=== PATIENT | female | born 1990 | race Caucasian/White ===

== ENCOUNTER 2018-05-09 14:09 | Emergency (ER) | payer BC ==
[2018-05-09 14:28] VITALS: BP 131/103
[2018-05-09] MEDS ORDERED: Sodium Chloride 0.9% 1,000 ML IV ONE (14:28)
--- NOTE | 2018-05-09 14:36 | EDM.PDOC ---
ED HPI GENERAL MEDICAL PROBLEM - General Chief Complaint: Chest Pain Stated Complaint: CHEST PAIN Time Seen by Provider: 05/09/18 14:17 - History of Present Illness INITIAL COMMENTS - FREE TEXT/NARRATIVE: This is a 28-year-old female accompanied by her significant other presented today to the emergency department for an evaluation of chest pain. She stated that she has history of aortic stenosis, tricuspid stenosis, and mitral prolapse which she has been following up with [facility] split trimmer . She further stated that she has had recent dental cleaning at the dental office approximately 6 days ago where she received prophylactic antibiotic one time dose prior to cleaning. After her dental cleaning she developed left-sided chest pain, which is associated with shortness of breath, neck and back pain. Upon onset of chest pain she rated her discomfort level was 7 or 8 on a scale of 0-10. She described her pain as sharp and heavy sensation to her left side of the chest. She denies any use of medication to alleviate pain prior to arrival today. [facility] today for the similar complaint where she was advised to come to the emergency department for further evaluation. Currently she is complaining of left sided chest pain which she rated about 7 on a scale of 0-10. Pain is associated with shortness of breath, lower back pain, nausea, dizziness. She denies any specific aggravating or alleviating factors continuing to her symptoms. She was asked specifically about contraception use which she denies any use in last 2 years. She further denies any recent traveling, denies any history of smoking, any history of asthma. She denies any other concern at this time. Left Chest Pain Score (Numeric/FACES): 7 - Related Data Allergies Allergy/AdvReac Type Severity Reaction Status Date / Time grass pollen Allergy Cannot Verified 10/28/15 12:52 Remember dust Allergy Cannot Uncoded 10/28/15 12:52 Remember Home Meds: Home Meds Fexofenadine/Pseudoephedrine [Diana-D 24 Hour Tablet] 1 each PO DAILY [History] Levothyroxine Sodium [Synthroid] 88 mcg PO DAILY 10/28/15 [History] Multivitamin [Multi-Day Vitamins] 1 each PO DAILY 10/28/15 [History] Pnv No.122/Iron/Folic Acid [ Multi Tablet] 1 tab PO DAILY 05/09/18 [ History] Past Medical History HEENT History: Reports: Allergic Rhinitis Other HEENT History: diplobia, facial surgery Other Gastrointestinal History: epigastric pain, rectal bleeding, hematochezia Other Neuro History: dizziness Other Psychiatric History: fatigue Endocrine/Metabolic History: Reports: Hypothyroidism - Past Surgical History HEENT Surgical History: Reports: Tonsillectomy Social & Family History - Tobacco Use Smoking Status *Q: Never Smoker ED ROS GENERAL - Review of Systems Review Of Systems: ROS reveals no pertinent complaints other than HPI. ED EXAM, GENERAL - Physical Exam Exam: See Below Exam Limited By: No Limitations General Appearance: Alert, WD/WN, No Apparent Distress Ears: Normal External Exam, Normal Canal, Hearing Grossly Normal, Normal TMs Ear Exam: Bilateral Ear: Auricle Normal, Canal Normal, TM normal Nose: Normal Inspection, Normal Mucosa, No Blood Throat/Mouth: Normal Inspection, Normal Lips, Normal Teeth, Normal Gums, Normal Oropharynx, Normal Voice, No Airway Compromise Head: Atraumatic, Normocephalic Neck: Normal Inspection, Supple, Non-Tender, Full Range of Motion Respiratory/Chest: No Respiratory Distress, Lungs Clear, Normal Breath Sounds, No Accessory Muscle Use, Chest Non-Tender Cardiovascular: Normal Peripheral Pulses, No Edema, Tachycardia, Systolic Murmur GI/Abdominal: Normal Bowel Sounds, Soft, Non-Tender, No Distention, No Abnormal Bruit Back Exam: Normal Inspection, Full Range of Motion, NT Extremities: Normal Inspection, Normal Range of Motion, Non-Tender, Normal Capillary Refill, No Pedal Edema Neurological: Alert, Oriented, Normal Cognition, Normal Gait Psychiatric: Normal Affect, Normal Mood Skin Exam: Warm, Dry, Intact, Normal Color, No Rash Lymphatic: No Adenopathy Course - Vital Signs Last Recorded V/S: Last Vital Signs Temp 37.4 C 05/09/18 14:20 Pulse 98 05/09/18 14:20 Resp 16 05/09/18 14:20 BP 131/103 H 05/09/18 14:20 Pulse Ox 98 05/09/18 14:20 - Orders/Labs/Meds Orders: Active Orders 24 hr Category Date Time Status EKG Documentation Completion [RC] STAT Care 05/09/18 14:27 Active Chest 2V [CR] Stat Exams 05/09/18 14:27 Taken Labs: Laboratory Tests 05/09/18 05/09/18 05/09/18 Range/Units 15:00 15:00 15:00 WBC 9.38 (3.98-10.04) K/mm3 RBC 4.25 (3.98-5.22) M/mm3 Hgb 13.2 (11.2-15.7) gm/L Hct 38.1 (34.1-44.9) % MCV 89.6 (79.4-94.8) fl MCH 31.1 (25.6-32.2) pg MCHC 34.6 (32.2-35.5) g/dl RDW Std Deviation 40.4 (36.4-46.3) fL Plt Count 187 (182-369) K/mm3 MPV 10.7 (9.4-12.3) fl Neut % (Auto) 72.4 H (34.0-71.1) % Lymph % (Auto) 18.9 L (19.3-51.7) % [place] % (Auto) 6.8 (4.7-12.5) % Eos % (Auto) 1.3 (0.7-5.8) Baso % (Auto) 0.6 (0.1-1.2) % Neut # (Auto) 6.79 H (1.56-6.13) K/mm3 Lymph # (Auto) 1.77 (1.18-3.74) K/mm3 [place] # (Auto) 0.64 H (0.24-0.36) K/mm3 Eos # (Auto) 0.12 (0.04-0.36) K/mm3 Baso # (Auto) 0.06 (0.01-0.08) K/mm3 PT 10.9 (9.5-12.1) SECONDS INR 1.00 D-Dimer, Quantitative 0.32 (0.19-0.50) mg/L Sodium 137 (136-145) mEq/L Potassium 3.7 (3.5-5.1) mEq/L Chloride 102 (98-107) mEq/L Carbon Dioxide 26 (21-32) mEq/L Anion Gap 12.7 (5-15) BUN 11 (7-18) mg/dL Creatinine 1.1 H (0.55-1.02) mg/dL Est Cr Clr Drug Dosing 66.34 mL/min Estimated GFR (MDRD) 60 (>60) mL/min BUN/Creatinine Ratio 10.0 L (14-18) Glucose 97 (74-106) mg/dL Calcium 8.9 (8.5-10.1) mg/dL Magnesium 1.9 (1.8-2.4) mg/dl Total Bilirubin 0.7 (0.2-1.0) mg/dL AST 14 L (15-37) U/L ALT 17 (14-59) U/L Alkaline Phosphatase 76 (46-116) U/L CK-MB (CK-2) < 0.5 (0-3.6) ng/ml NT-Pro-B Natriuret Pep (0-125) pg/mL Total Protein 7.9 (6.4-8.2) g/dl Albumin 3.9 (3.4-5.0) g/dl Globulin 4.0 gm/dL Albumin/Globulin Ratio 1.0 (1-2) Urine Color (Yellow) Urine Appearance (Clear) Urine pH (5.0-8.0) Ur Specific [place] (1.005-1.030) Urine Protein (Negative) Urine Glucose (UA) (Negative) Urine Ketones (Negative) Urine Occult Blood (Negative) Urine Nitrite (Negative) Urine Bilirubin (Negative) Urine Urobilinogen (0.2-1.0) Ur Leukocyte Esterase (Negative) Urine RBC (0-5) /hpf Urine WBC (0-5) /hpf Ur Epithelial Cells (0-5) /hpf Urine Bacteria (FEW) /hpf Urine Mucus (FEW) /hpf 05/09/18 05/09/18 Range/Units 15:00 16:00 WBC (3.98-10.04) K/mm3 RBC (3.98-5.22) M/mm3 Hgb (11.2-15.7) gm/L Hct (34.1-44.9) % MCV (79.4-94.8) fl MCH (25.6-32.2) pg MCHC (32.2-35.5) g/dl RDW Std Deviation (36.4-46.3) fL Plt Count (182-369) K/mm3 MPV (9.4-12.3) fl Neut % (Auto) (34.0-71.1) % Lymph % (Auto) (19.3-51.7) % [place] % (Auto) (4.7-12.5) % Eos % (Auto) (0.7-5.8) Baso % (Auto) (0.1-1.2) % Neut # (Auto) (1.56-6.13) K/mm3 Lymph # (Auto) (1.18-3.74) K/mm3 [place] # (Auto) (0.24-0.36) K/mm3 Eos # (Auto) (0.04-0.36) K/mm3 Baso # (Auto) (0.01-0.08) K/mm3 PT (9.5-12.1) SECONDS INR D-Dimer, Quantitative (0.19-0.50) mg/L Sodium (136-145) mEq/L Potassium (3.5-5.1) mEq/L Chloride (98-107) mEq/L Carbon Dioxide (21-32) mEq/L Anion Gap (5-15) BUN (7-18) mg/dL Creatinine (0.55-1.02) mg/dL Est Cr Clr Drug Dosing mL/min Estimated GFR (MDRD) (>60) mL/min BUN/Creatinine Ratio (14-18) Glucose (74-106) mg/dL Calcium (8.5-10.1) mg/dL Magnesium (1.8-2.4) mg/dl Total Bilirubin (0.2-1.0) mg/dL AST (15-37) U/L ALT (14-59) U/L Alkaline Phosphatase (46-116) U/L CK-MB (CK-2) (0-3.6) ng/ml NT-Pro-B Natriuret Pep 73 (0-125) pg/mL Total Protein (6.4-8.2) g/dl Albumin (3.4-5.0) g/dl Globulin gm/dL Albumin/Globulin Ratio (1-2) Urine Color Yellow (Yellow) Urine Appearance Clear (Clear) Urine pH 6.0 (5.0-8.0) Ur Specific [place] 1.015 (1.005-1.030) Urine Protein Negative (Negative) Urine Glucose (UA) Negative (Negative) Urine Ketones Negative (Negative) Urine Occult Blood Negative (Negative) Urine Nitrite Negative (Negative) Urine Bilirubin Negative (Negative) Urine Urobilinogen 0.2 (0.2-1.0) Ur Leukocyte Esterase Negative (Negative) Urine RBC Not seen (0-5) /hpf Urine WBC 0-5 (0-5) /hpf Ur Epithelial Cells 5-10 H (0-5) /hpf Urine Bacteria Moderate H (FEW) /hpf Urine Mucus Not seen (FEW) /hpf Meds: Medications Discontinued Medications Generic Name Dose Route Start Last Admin Trade Name Freq PRN Reason Stop Dose Admin Sodium Chloride 1,000 mls @ 999 mls/hr 05/09/18 14:28 05/09/18 14:50 Normal Saline IV 05/09/18 15:28 999 mls/hr ONETIME ONE Administration Ketorolac Tromethamine 30 mg 05/09/18 16:01 05/09/18 16:06 Toradol IVPUSH 05/09/18 16:02 30 mg ONETIME ONE Administration - Re-Assessments/Exams Free Text/Narrative Re-Assessment/Exam: 05/09/18 16:50 At this time patient has been reevaluated at bedside. Patient appears to be in no acute distress. Vital signs normal. Denies any chest pain, palpitation, or shortness of breath. Patient is low risk for PE per Wells or PERC criteria as well as negative d-dimer and cardiac enzymes. This put patient on low risk for cardiopulmonary etiology. However patient has highly advise and instructed to follow up closely with [facility] split [facility]mer as well as primary care provider for reevaluation of today emergency visit. Patient and family both verbalized understanding of the given instruction and agrees to comply. Departure - Departure Time of Disposition: 17:05 Disposition: Home, Self-Care 01 Condition: Good Clinical Impression: Chest pain, non-cardiac Instructions: Nonspecific Chest Pain, [id number] Referrals: Dina Bloom NP [Primary Care Provider] - 3 Days (Please call your primary care provider in 2-3 day for reevaluation of today emergency visit) Jay Borden MD [Ordering Only Provider] - 3 Days (Known patient preferred [facility] trimmer) Forms: ED Department Discharge Additional Instructions: Patient has been advised to take ibuprofen 600 mg or Tylenol 1000 mg by mouth 3 times a day as needed for pain control. Also instructed to limit alcohol consumption. Advised to drink plenty of fluids. - My Orders Last 24 Hours: My Active Orders 05/09/18 14:27 EKG Documentation Completion [RC] STAT Chest 2V [CR] Stat - Assessment/Plan Last 24 Hours: My Active Orders 05/09/18 14:27 EKG Documentation Completion [RC] STAT Chest 2V [CR] Stat
[2018-05-09] MEDS ORDERED: Ketorolac 30 MG/ML SDV IVPUSH ONE (16:01)
--- NOTE | 2018-05-10 07:46 | CR ---
Chest: Two views of the chest were obtained. Comparison: No prior chest x-ray. Heart size and mediastinum are normal. Lungs are clear. Bony structures are unremarkable. Impression: 1. Nothing acute is seen on two-view chest x-ray. Diagnostic code #1
== END 2018-05-09 17:10 | disposition home or self-care (01) ==
LOC: JD.ED 14:09
DX: R07.9 Chest pain, unspecified (principal); Z91.09 Other allergy status, other than to drugs and biological substances; Z79.899 Other long term (current) drug therapy
CPT/HCPCS: 36415; 71046; 80053; 81001; 82553; 83735; 83880; 85025; 85379; 85610; 93005; 96361; 96374; 99285; J1885; J7040; 93010; 99284